=== PATIENT | male | born 1980 | race African-American/Black ===

== ENCOUNTER 2016-06-07 22:39 | Emergency (ER) | payer OTHER ==
[~2016-06-07] VITALS: Ht 188 cm; Wt 81.6 kg
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
--- NOTE | 2016-06-07 23:01 | NUR ---
DR. CAPELLAN AT BEDSIDE FOR EVAL.
[2016-06-07] MEDS ORDERED: ONDANSETRON 4 MG TAB.RAPDIS ONE (23:06)
[2016-06-07] MEDS ORDERED: HYDROCODONE/APAP 10/325MG 1 EA TABLET ONE (23:06)
--- NOTE | 2016-06-07 23:14 | NUR ---
PT TO RADIOLOGY FOR XRAYS.
[2016-06-07] MEDS ORDERED: ONDANSETRON 4 MG TAB.RAPDIS SL ONE (23:30)
[2016-06-07] MEDS ORDERED: HYDROCODONE/APAP 10/325MG 1 EA TABLET PO ONE (23:30)
--- NOTE | 2016-06-07 23:47 | NUR ---
PT RETURNED FROM CT.
[2016-06-08] MEDS ORDERED: BACI/NEOM/POLY B OINT PKT 1 UDPKT PACKET TP ONE (01:00)
[2016-06-08] MEDS ORDERED: BACI/NEOM/POLY B OINT PKT 1 UDPKT PACKET ONE (01:03)
--- NOTE | 2016-06-08 01:10 | NUR ---
Patient discharged to home in stable condition. Written and verbal after care instructions given. Patient verbalizes understanding of instruction. ambulatory with a steady gait. pt left ankle zakia wrapped. pt w/c per request.
[2016-06-08 01:11] VITALS: BP 118/68
== END 2016-06-08 01:12 | disposition home or self-care (01) ==
LOC: ER 22:46
DX: S30.810A Abrasion of lower back and pelvis, initial encounter (principal); T14.8 Other injury of unspecified body region; M54.6 Pain in thoracic spine; M25.532 Pain in left wrist; M79.672 Pain in left foot; M25.572 Pain in left ankle and joints of left foot; M25.551 Pain in right hip; R10.2 Pelvic and perineal pain; J45.909 Unspecified asthma, uncomplicated; W18.39XA Other fall on same level, initial encounter; Y93.9 Activity, unspecified; Y92.9 Unspecified place or not applicable; Y99.9 Unspecified external cause status
CPT/HCPCS: 72074; 72100; 73110; 73502; 73610; 73630; 99284; A4606; Q0162; Z7610; 73510-TC